=== PATIENT | female | born 1995 | race Caucasian/White ===

== ENCOUNTER 2016-06-13 15:48 | Emergency (ER) | payer BC ==
[2016-06-13] MEDS ORDERED: DEXAMETHASONE 10 MG/ML VIAL IVP ONE (16:03)
[2016-06-13] MEDS ORDERED: METOCLOPRAMIDE 10 MG/2 ML VIAL IVP ONE (16:03)
[2016-06-13] MEDS ORDERED: HYDROmorphONE/DILAUDID 1 MG/ML SYR IVP ONE ×2 (16:03→16:49)
--- NOTE | 2016-06-13 16:05 | EDPHY ---
H & P Stated Complaint: SÁNCHEZ x3 days (has hx);Had IV/meds @ [facility]; Sent here for further eval - Personal History LMP (Females 10-55): Now Current Tetanus Diphtheria and Acellular Pertussis (TDAP): Yes - Medical/Surgical History Hx Asthma: No Hx Chronic Respiratory Disease: No Hx Diabetes: No Hx Cardiac Disease: No Hx Renal Disease: No Hx Cirrhosis: No Hx Alcoholism: No Hx HIV/AIDS: No Hx Splenectomy or Spleen Trauma: No Other PMH: PMH- KIDNEY INFXNS, DEPRESSION/MIGRAINES - Social History Smoking Status: Never smoked Time Seen by Provider: 06/13/16 15:56 HPI/ROS: CHIEF COMPLAINT: "Migraine headache" x3 days HISTORY OF PRESENT ILLNESS: 21-year-old female history of chronic migraine headache with limited imaging of brain complaining of 3 days of a frontal and right-sided headache which feels different than her usual headache. She woke with a headache. Not thunderclap. Not associated with nuchal rigidity. Not associated with photophobia. No nausea or vomiting. No fever no chills. No flu- like symptoms.No recent trauma She went to [employer] today was given IV Zofran, IV Toradol with no resolution symptoms and came to the ER with her IV saline lock still in place. PRIMARY CARE PROVIDER:Bryan REVIEW OF SYSTEMS: A ten point review of systems was performed and is negative with the exception of the items mentioned in the HPI PAST MEDICAL & SURGICAL HISTORY: chronic migraine headache. Oral contraceptive use. SOCIAL HISTORY: nonsmoker PHYSICAL EXAM (Prior to examination, patient consented to physical exam, hands were washed and my usual and customary physical exam procedures followed) 1) GENERAL: Well-developed, well-nourished, alert and oriented. Appears comfortable . 2) HEAD: Normocephalic, atraumatic 3) HEENT: Pupils equal, round, reactive to light bilaterally. Sclera anicteric. Nasopharynx, oropharynx, clear, no lesions. No photophobia Ears bilaterally with normal tympanic membranes. 4) NECK: Full range of motion, no meningeal signs. 5) LUNGS: Clear auscultation bilaterally, no wheezes, no rhonchi, no retractions. 6) HEART: Regular rate and rhythm, no murmur, no heave, no gallop. 7) ABDOMEN: No guarding, no rebound, no focal tenderness, 8) MUSCULOSKELETAL: No peripheral edema or discoloration. 9) BACK: No CVA tenderness. 10) SKIN: No rash, no petechiae. 11) Psychiatric: Patient is oriented X 3, there is no agitation. 12) NEURO: Awake, alert, and oriented to person, place and time. Answers questions appropriately. There were no obvious focal neurologic abnormalities. No cerebellar dysfunction. Normal steady gait. Upper and lower extremities bilaterally with strength 5 / 5, reflexes 2+. DIFFERENTIAL DIAGNOSIS: In no particular order, including but not limited to subarachnoid hemorrhage, migraine headache, tension headache and infectious causes such as meningitis, pharyngitis and sinusitis. . (Kate Dominguez) Constitutional: Initial Vital Signs Temperature (C) 36.7 C 06/13/16 15:49 Heart Rate 84 06/13/16 15:49 Respiratory Rate 18 06/13/16 15:49 Blood Pressure 126/66 H 06/13/16 15:49 O2 Sat (%) 97 06/13/16 15:49 O2 Delivery Mode Room Air Allergies/Adverse Reactions: bronopol Allergy (Intermediate, Verified 06/13/16 15:52) skin swells Home Medications: Medication Instructions Recorded Tablet 11/28/15 Hydrocodone/APAP 5/325 [[place] 1 tab PO Q6 PRN #7 tab 06/13/16 5/325 (RX)] Ondansetron Odt [Zofran Odt] 4 mg PO Q4PRN PRN #7 tab 06/13/16 buPROPion [Wellbutrin 75mg (*)] 75 mg PO 06/13/16 Medical Decision Making - Diagnostics Imaging Results: Imaging Impressions Head CT 06/13/16 16:14 Impression: Normal. CT Angiogram of the Brain Clinical Indications: Sudden onset headache. Evaluate for venous sinus thrombosis. . Technique: CT angiogram of the brain was performed with the uneventful intravenous administration of 85 mL Isovue-370 contrast. Multiplanar reconstructions including 3D reconstructions performed and evaluated on Tailored workstation in order to better evaluate the [place] vessels. Images were manipulated by the radiologist at the computer workstation. Dose reduction techniques were utilized. Findings: Major vessels of the [place] are adequately displayed, demonstrating no evidence of aneurysm, vascular malformation, flow-limiting stenosis, or occlusion. Bilateral cavernous internal carotid arteries and vertebrobasilar system demonstrates no evidence of flow-limiting stenosis, aneurysm, occlusion or dissection. Superior sagittal sinus, transverse sinuses, and major veins demonstrate no evidence of intraluminal thrombi. Impression: Negative CT angiogram of the brain. Results called to Dr. Amado Kam. Head CTA 06/13/16 16:14 Impression: Normal. CT Angiogram of the Brain Clinical Indications: Sudden onset headache. Evaluate for venous sinus thrombosis. . Technique: CT angiogram of the brain was performed with the uneventful intravenous administration of 85 mL Isovue-370 contrast. Multiplanar reconstructions including 3D reconstructions performed and evaluated on Tailored workstation in order to better evaluate the [place] vessels. Images were manipulated by the radiologist at the computer workstation. Dose reduction techniques were utilized. Findings: Major vessels of the [place] are adequately displayed, demonstrating no evidence of aneurysm, vascular malformation, flow-limiting stenosis, or occlusion. Bilateral cavernous internal carotid arteries and vertebrobasilar system demonstrates no evidence of flow-limiting stenosis, aneurysm, occlusion or dissection. Superior sagittal sinus, transverse sinuses, and major veins demonstrate no evidence of intraluminal thrombi. Impression: Negative CT angiogram of the brain. Results called to Dr. Amado Kam. CT head without and with IV contrast reviewed by me and discussed with Dr. Kang is negative. No evidence for intracranial bleeding, aneurysm, sagittal venous thrombosis (Amado Kam) ED Course/Re-evaluation: 4:00 p.m.: This patient has a longstanding history of chronic headaches with limited imaging and notes a headache which feels very different than her usual chronic headaches namely her headaches usually do not last 3 days, she does not have the associated photophobia audiophobia, nausea which typically accompanies her headaches. I recommended CT imaging with and without contrast to evaluate for possible cerebral venous thrombosis. Indications risks benefits discussed with patient and she consents. I believe her to have decision-making capacity 4:49 p.m.: Re-evaluation. She notes continued pain. 5:00 p.m.: Care will be transferred to Dr. Amado Kam at this time. CT imaging pending. (Kate Dominguez) Re-evaluation at 6:30 p.m.--patient is stable, alert, conversational. Neurologically intact. She and I discussed laboratory evaluation, imaging study results, treatment plan including criteria for return importance of follow -up and further evaluation. She expresses understanding and agreement (Amado Kam) - Data Points Laboratory Results: Laboratory Results 06/13/16 16:29 06/13/16 16:29 06/13/16 06/13/16 06/13/16 16:29 16:29 16:29 WBC 5.61 10^3/uL 10^3/uL (3.80-9.50) RBC 4.53 10^6/uL 10^6/uL (4.18-5.33) Hgb 12.7 g/dL g/dL (12.6-16.3) Hct 38.4 % % (38.0-47.0) MCV 84.8 fL fL (81.5-99.8) MCH 28.0 pg pg (27.9-34.1) MCHC 33.1 g/dL g/dL (32.4-36.7) RDW 12.9 % % (11.5-15.2) Plt Count 215 10^3/uL 10^3/uL (150-400) MPV 9.7 fL fL (8.7-11.7) Neut % (Auto) 52.7 % % (39.3-74.2) Lymph % (Auto) 39.2 % % (15.0-45.0) [place] % (Auto) 6.6 % % (4.5-13.0) Eos % (Auto) 1.1 % % (0.6-7.6) Baso % (Auto) 0.2 % L % (0.3-1.7) Nucleat RBC Rel Count 0.0 % % (0.0-0.2) Absolute Neuts (auto) 2.96 10^3/uL 10^3/uL (1.70-6.50) Absolute Lymphs (auto) 2.20 10^3/uL 10^3/uL (1.00-3.00) Absolute Monos (auto) 0.37 10^3/uL 10^3/uL (0.30-0.80) Absolute Eos (auto) 0.06 10^3/uL 10^3/uL (0.03-0.40) Absolute Basos (auto) 0.01 10^3/uL L 10^3/uL (0.02-0.10) Absolute Nucleated RBC 0.00 10^3/uL 10^3/uL (0-0.01) Immature Gran % 0.2 % % (0.0-1.1) Immature Gran # 0.01 10^3/uL 10^3/uL (0.00-0.10) Sodium 139 mEq/L mEq/L (134-144) Potassium 3.8 mEq/L mEq/L (3.5-5.2) Chloride 109 mEq/L mEq/L (97-110) Carbon Dioxide 23 mEq/l mEq/l (22-31) Anion Gap 7 mEq/L L mEq/L (8-16) BUN 9 mg/dL mg/dL (7-23) Creatinine 0.7 mg/dL mg/dL (0.6-1.0) Estimated GFR > 60 Glucose 78 mg/dL mg/dL (70-100) Calcium 8.4 mg/dL L mg/dL (8.5-10.4) Beta HCG, Qual NEGATIVE Medications Given: Discontinued Medications Dexamethasone (Decadron Injection) 10 mg IVP EDNOW ONE Stop: 06/13/16 16:04 Last Admin: 06/13/16 16:15 Dose: 10 mg Diphenhydramine HCl (Benadryl Injection) 25 mg IVP EDNOW ONE Stop: 06/13/16 16:04 Last Admin: 06/13/16 16:18 Dose: 25 mg Hydromorphone HCl (Dilaudid) 1 mg IVP EDNOW ONE Stop: 06/13/16 16:04 Last Admin: 06/13/16 16:15 Dose: 1 mg Hydromorphone HCl (Dilaudid) 1 mg IVP EDNOW ONE Stop: 06/13/16 16:50 Last Admin: 06/13/16 17:20 Dose: Not Given Metoclopramide HCl (Reglan Injection) 10 mg IVP EDNOW ONE Stop: 06/13/16 16:04 Last Admin: 06/13/16 16:36 Dose: 10 mg Departure - Departure Disposition: Home, Routine, Self-Care Clinical Impression: Headache Qualifiers: Headache type: other headache syndrome Qualified Code(s): G44.89 - Other headache syndrome Condition: Good Instructions: Migraine Headache (ED) Additional Instructions: RETURN TO THE ED IMMEDIATELY IF YOUR HEADACHE WORSENS, IF YOU DEVELOP A FEVER, NECK PAIN OR NECK STIFFNESS, OR IF YOU BECOME CONFUSED OR ABNORMALLY DROWSY. Referrals: RONY MADRIGAL [Other] - As per Instructions Jesse Sandra DO [Medical Doctor] - 2-3 days, call for appt. (Dr Sandra is a neurologist) Prescriptions: Hydrocodone/APAP 5/325 [[place] 5/325 (RX)] 1 tab PO Q6 PRN #7 tab PRN Reason: Pain, Severe Ondansetron Odt [Zofran Odt] 4 mg PO Q4PRN PRN #7 tab PRN Reason: Nausea
[2016-06-13 16:35] LABS: % IMMATURE GRANULYOCYTES 0.2 % (0.0-1.1); ABSOLUTE IMMATURE GRANULOCYTES 0.01 10^3/uL (0.00-0.10); ADD DIFF? NO; ADD MORPH? NO; ADD SCAN? NO; ATYPICAL LYMPHOCYTE FLAG 20 (0-99); FRAGMENT RBC FLAG 0 (0-99); HEMATOCRIT 38.4 % (38.0-47.0); HEMOGLOBIN 12.7 g/dL (12.6-16.3); LEFT SHIFT FLG 0 (0-99); LIPEMIA HEMOLYSIS FLAG 80 (0-99); MEAN CELL HEMOGLOBIN CONCENTR. 33.1 g/dL (32.4-36.7); MEAN CELL VOLUME 84.8 fL (81.5-99.8); MEAN PLATELET VOLUME 9.7 fL (8.7-11.7); PLATELET CLUMPS FLAG 0 (0-99); PLATELET COUNT 215 10^3/uL (150-400); RED BLOOD CELL COUNT 4.53 10^6/uL (4.18-5.33); RED CELL DISTRIBUTION WIDTH 12.9 % (11.5-15.2)
[2016-06-13 16:58] LABS: ANION GAP 7 mEq/L (8-16); CALCIUM 8.4 mg/dL (8.5-10.4); CARBON DIOXIDE 23 mEq/l (22-31); CHLORIDE 109 mEq/L (97-110); CREATININE 0.7 mg/dL (0.6-1.0); GLOMERULAR FILTRATION RATE > 60; GLUCOSE 78 mg/dL (70-100); POTASSIUM 3.8 mEq/L (3.5-5.2); SODIUM 139 mEq/L (134-144)
[2016-06-13] MEDS ORDERED: IOPAMIDOL (ISOVUE 370) 100 ML BTL IV ONE (17:05)
[2016-06-13 17:31] VITALS: PULSE 75
[2016-06-13 18:58] VITALS: BP 110/75; RESP 16; TEMP 99.3; O2SAT 97
== END 2016-06-13 18:57 | disposition home or self-care (01) ==
DX: G44.89 Other headache syndrome (principal)
CPT/HCPCS: 96374; J1170; J1200; J2765; Q9967

== ENCOUNTER 2016-06-14 16:05 | Emergency (ER) | payer BC ==
[2016-06-14] MEDS ORDERED: NS 1,000 ML IV ONE (16:30)
[2016-06-14] MEDS ORDERED: KETOROLAC 30 MG/1 ML SDV IVP ONE (16:30)
[2016-06-14] MEDS ORDERED: METOCLOPRAMIDE 10 MG/2 ML VIAL IVP ONE (16:30)
[2016-06-14] MEDS ORDERED: DEXAMETHASONE 10 MG/ML VIAL IVP ONE (16:31)
--- NOTE | 2016-06-14 16:32 | EDPHY ---
H & P Time Seen by Provider: 06/14/16 16:20 HPI/ROS: CHIEF COMPLAINT: Headache HISTORY OF PRESENT ILLNESS: This 21-year-old woman has had migraine headaches diagnosed and she was 10 years old. She presents to me stating that she has had a migraine headache since Friday of this week which is identical in quality to previous ones but just worse in severity and duration. She describes it as right-sided associated with nausea and some blurry vision and worse with light exposure. She was seen in our emergency department yesterday and was treated with Dilaudid and dexamethasone and Reglan which improved her headache temporarily but today it is worse. She also of note had CT and CT angiography and Venography which was negative yesterday. Today she presents with recurrent headache. Symptoms are moderate to severe. She specifically denies fever or double vision, recent injury or trauma, neck pain or vertigo. REVIEW OF SYSTEMS: Eye: no change in vision ENT: no sore throat Cardiac: no chest pain or syncope Pulmonary: no cough or SOB Abdomen: no vomiting, diarrhea, abdominal pain Musculoskeletal: no back pain Skin: no rash Neuro: HPI Constitutional: no fever : no urinary symptoms A comprehensive 10 point review of systems is otherwise negative aside from elements mentioned in the history of present illness. PAST MEDICAL HISTORY: Migraine headaches as noted above. Last menstrual period was Friday and denies , also has history of kidney infections and depression. Social history: No smoking or drugs General Appearance: Alert and conversant, cooperative. Eyes: No scleral icterus. Extraocular motion intact, no proptosis, pupils equal and reactive. ENT, Mouth: Normal mucous membranes. No trismus, normal tympanic membranes, normal pharynx. No facial swelling or redness. Respiratory: Normal respiratory effort, breath sounds equal, lungs are clear to auscultation. Cardiovascular: Regular rate and rhythm. Gastrointestinal: Abdomen is soft and non tender. Neurological: Alert and oriented x3. Normally conversant. Face symmetric, normal movement and sensation in all extremities. Normal [id number] bilaterally and no pronator drift. Skin: Warm and dry, no rashes. Musculoskeletal: Full range of motion of the neck without meningeal signs. Psychiatric: Not agitated. Emergency Department course/MDM: Patient presents with exacerbation of her migraine and negative CT imaging yesterday. I think that carotid or vertebral dissection or CAPSULE FILLING MACHINE OPERATOR infection is unlikely. I think that acute subarachnoid or intracranial hypertension is also unlikely. She has neurology follow-up this coming Friday. Plan to treat with IV Toradol 30 mg, Benadryl 50 mg, Reglan 10 mg, dexamethasone 10 mg. 1729: Improved, sleeping. 1824: Still has headache, imitrex discussed and consented. 1909: Feels a little bit "weird," headache improving. 1951: Feels well enough to go home, headache better, we discussed trying oral Imitrex at home as a rescue medication, consented. Smoking Status: Never smoked Constitutional: Initial Vital Signs Temperature (C) 36.7 C 06/14/16 16:08 Heart Rate 76 06/14/16 16:08 Respiratory Rate 18 06/14/16 16:08 Blood Pressure 126/80 H 06/14/16 16:08 O2 Sat (%) 98 06/14/16 16:08 O2 Delivery Mode Room Air Allergies/Adverse Reactions: bronopol Allergy (Intermediate, Verified 06/13/16 15:52) skin swells Home Medications: Medication Instructions Recorded Tablet 11/28/15 Hydrocodone/APAP 5/325 [[place] 1 tab PO Q6 PRN #7 tab 06/13/16 5/325 (RX)] Ondansetron Odt [Zofran Odt] 4 mg PO Q4PRN PRN #7 tab 06/13/16 buPROPion [Wellbutrin 75mg (*)] 75 mg PO 06/13/16 SUMAtriptan [Imitrex 50 MG (*)] 50 mg PO Q2H #6 tab 06/14/16 Medical Decision Making Differential Diagnosis: Differential diagnosis considered for headache including but not limited to subarachnoid hemorrhage, migraine headache, tension headache and infectious causes such as meningitis, pharyngitis and sinusitis. - Data Points Medications Given: Discontinued Medications Dexamethasone (Decadron Injection) 10 mg IVP EDNOW ONE Stop: 06/14/16 16:32 Last Admin: 06/14/16 16:48 Dose: 10 mg Diphenhydramine HCl (Benadryl Injection) 50 mg IVP EDNOW ONE Stop: 06/14/16 16:31 Last Admin: 06/14/16 16:48 Dose: 50 mg Sodium Chloride (Ns) 1,000 mls @ 0 mls/hr IV ONCE ONE PRN Reason: Wide Open Stop: 06/14/16 16:31 Last Admin: 06/14/16 16:36 Dose: 1,000 mls Ketorolac Tromethamine (Toradol) 30 mg IVP EDNOW ONE Stop: 06/14/16 16:31 Last Admin: 06/14/16 16:48 Dose: 30 mg Metoclopramide HCl (Reglan Injection) 10 mg IVP EDNOW ONE Stop: 06/14/16 16:31 Last Admin: 06/14/16 16:48 Dose: 10 mg Sumatriptan Succinate (Imitrex Sc Injection) 6 mg SC EDNOW ONE Stop: 06/14/16 18:23 Last Admin: 06/14/16 18:29 Dose: 6 mg Departure - Departure Disposition: Home, Routine, Self-Care Clinical Impression: Headache Qualifiers: Headache type: unspecified Headache chronicity pattern: acute headache Intractability: not intractable Qualified Code(s): R51 - Headache Condition: Good Instructions: Acute Headache (ED) Additional Instructions: Please follow-up with your neurologist on Friday next week as scheduled. Referrals: RONY MADRIGAL [Other] - As per Instructions Jesse Sandra DO [Medical Doctor] - As per Instructions (Dr. Sandra is the [facility] neurologist) Prescriptions: SUMAtriptan [Imitrex 50 MG (*)] 50 mg PO Q2H #6 tab
[2016-06-14] MEDS ORDERED: SUMAtriptan 6 MG/0.5 ML VIAL SC ONE ×2 (18:22→18:23)
[2016-06-14 18:58] VITALS: BP 121/86
[2016-06-14 20:08] VITALS: PULSE 58; RESP 17; TEMP 97.9; O2SAT 97
== END 2016-06-14 20:08 | disposition home or self-care (01) ==
DX: R51 Headache (principal)
CPT/HCPCS: 96374; J1200; J1885; J2765; J3030

== ENCOUNTER 2016-11-11 14:48 | Emergency (ER) | payer BC ==
[2016-11-11 15:26] LABS: COLOR COLORLESS; LEUKOCYTE ESTERASE,URINE NEGATIVE (NEGATIVE); NITRITE,URINE NEGATIVE (NEGATIVE)
[2016-11-11] MEDS ORDERED: ONDANSETRON 4 MG/2 ML VIAL IVP ONE (16:25)
[2016-11-11] MEDS ORDERED: NS 1,000 ML IV ONE (16:25)
[2016-11-11 16:28] LABS: MUCUS TRACE /lpf (NONE-1+)
[2016-11-11 16:30] LABS: RBC,URINE NONE SEEN /hpf (0-3)
[2016-11-11 16:36] LABS: % IMMATURE GRANULYOCYTES 0.4 % (0.0-1.1); ABSOLUTE IMMATURE GRANULOCYTES 0.04 10^3/uL (0.00-0.10); ADD DIFF? NO; ADD MORPH? NO; ADD SCAN? NO; ATYPICAL LYMPHOCYTE FLAG 20 (0-99); FRAGMENT RBC FLAG 0 (0-99); HEMATOCRIT 43.6 % (38.0-47.0); HEMOGLOBIN 14.7 g/dL (12.6-16.3); LEFT SHIFT FLG 0 (0-99); LIPEMIA HEMOLYSIS FLAG 80 (0-99); MEAN CELL HEMOGLOBIN 28.9 pg (27.9-34.1); MEAN CELL HEMOGLOBIN CONCENTR. 33.7 g/dL (32.4-36.7); MEAN CELL VOLUME 85.8 fL (81.5-99.8); MEAN PLATELET VOLUME 9.5 fL (8.7-11.7); PLATELET CLUMPS FLAG 0 (0-99); PLATELET COUNT 304 10^3/uL (150-400); RED BLOOD CELL COUNT 5.08 10^6/uL (4.18-5.33); RED CELL DISTRIBUTION WIDTH 12.3 % (11.5-15.2)
--- NOTE | 2016-11-11 16:37 | EDPHY ---
H & P Stated Complaint: "I think I have a kidney infection" - Personal History LMP (Females 10-55): 8-14 Days Ago Current Tetanus Diphtheria and Acellular Pertussis (TDAP): Yes - Medical/Surgical History Hx Asthma: No Hx Chronic Respiratory Disease: No Hx Diabetes: No Hx Cardiac Disease: No Hx Renal Disease: No Hx Cirrhosis: No Hx Alcoholism: No Hx HIV/AIDS: No Hx Splenectomy or Spleen Trauma: No Other PMH: PMH- KIDNEY INFXNS, DEPRESSION/MIGRAINES - Social History Smoking Status: Never smoked Time Seen by Provider: 11/11/16 16:18 HPI/ROS: CHIEF COMPLAINT: "I think I have a kidney infection "x2 days HISTORY OF PRESENT ILLNESS: 21-year-old immunocompetent female had urinary tract infection 10 days ago, treated with antibiotics via urgent care that time , now complaining of right flank pain for the past 2 days. Positive nausea. Positive intermittent right upper quadrant pain. No vomiting. No headache. No fever or chills. No incontinence. No retention. No radiculopathy. No midline back pain. No trauma. No respiratory complaints. No dyspnea. No cough. No recent URI symptoms. PRIMARY CARE PROVIDER: Bryan REVIEW OF SYSTEMS: A ten point review of systems was performed and is negative with the exception of the items mentioned in the HPI PAST MEDICAL & SURGICAL HISTORY: Recent diagnosis of UTI at an urgent care. No history of abdominal surgeries. SOCIAL HISTORY: Nonsmoker, student PHYSICAL EXAM (Prior to examination, patient consented to physical exam, hands were washed and my usual and customary physical exam procedures followed) 1) GENERAL: Well-developed, well-nourished, alert and oriented. Appears to be in no acute distress. 2) HEAD: Normocephalic, atraumatic 3) HEENT: Pupils equal, round, reactive to light bilaterally. Sclera anicteric. Nasopharynx, oropharynx, clear, no lesions. Moist mucous membranes Ears bilaterally with normal tympanic membranes. 4) NECK: Full range of motion, no meningeal signs. 5) LUNGS: Clear auscultation bilaterally, no wheezes, no rhonchi, no retractions. 6) HEART: Regular rate and rhythm, no murmur, no heave, no gallop. 7) ABDOMEN: No guarding, no rebound, no focal tenderness, negative McBurney's, negative Mcnamara's, negative Rovsing's, negative peritoneal sign, I am unable to elicit abdominal pain on exam 8) MUSCULOSKELETAL: Moving all extremities, no focal areas of tenderness, no obvious trauma. No peripheral edema or discoloration. 9) BACK: Positive right CVA tenderness, no midline vertebral tenderness, no fluctuance, no step-off, no obvious trauma, no visual or palpable abnormality.] 10) SKIN: No rash, no petechiae. 11) Psychiatric: Patient is oriented X 3, there is no agitation. DIFFERENTIAL DIAGNOSIS: in no particular order including but limited to pyelonephritis, acute cholecystitis, acute pancreatitis, perinephric abscess, muscle strain (Kate Dominguez) Constitutional: Initial Vital Signs Temperature (C) 36.8 C 11/11/16 15:00 Heart Rate 73 11/11/16 15:00 Respiratory Rate 18 11/11/16 15:00 Blood Pressure 122/87 H 11/11/16 15:00 O2 Sat (%) 97 11/11/16 15:00 O2 Delivery Mode Room Air Allergies/Adverse Reactions: bronopol Allergy (Intermediate, Verified 11/11/16 15:05) skin swells Home Medications: Medication Instructions Recorded Tablet 11/28/15 SUMAtriptan [Imitrex 50 MG (*)] 50 mg PO Q2H #6 tab 06/14/16 DULoxetine [Cymbalta 30 MG (*)] 30 mg PO 11/11/16 Ibuprofen [Motrin (*)] 800 mg PO Q6 #10 tab 11/11/16 Medical Decision Making ED Course/Re-evaluation: 5:01 p.m.: Evaluated with septations. Appears well, she is afebrile, normal vital signs. I reviewed her laboratory studies including normal urinalysis, normal chemistry. Doubt pyelonephritis, perinephric abscess, doubt acute cholecystitis, doubt acute pancreatitis, doubt nephrolithiasis, doubt PE, doubt pulmonary infectious etiology. I discussed possible acute muscle strain. I do not think that antibiotics are currently indicated, not think that imaging or diagnostic studies are indicated. I recommended pain control with NSAIDs, usual and customary NSAID precautions and instructions provided. Recommend that if she develops new or worsening symptoms to return emergency department immediately otherwise to follow up with [facility]. Patient is agreeable with this. All questions and concerns addressed by myself (Kate Dominguez) I did not see this patient while she was in the emergency department. However her care was discussed with the PA while the patient was in the department. I agree with treatment plan and management (Amado Kam) - Data Points Laboratory Results: Laboratory Results 11/11/16 16:30 11/11/16 16:30 11/11/16 11/11/16 11/11/16 16:30 16:30 15:10 WBC 9.29 10^3/uL 10^3/uL (3.80-9.50) RBC 5.08 10^6/uL 10^6/uL (4.18-5.33) Hgb 14.7 g/dL g/dL (12.6-16.3) Hct 43.6 % % (38.0-47.0) MCV 85.8 fL fL (81.5-99.8) MCH 28.9 pg pg (27.9-34.1) MCHC 33.7 g/dL g/dL (32.4-36.7) RDW 12.3 % % (11.5-15.2) Plt Count 304 10^3/uL 10^3/uL (150-400) MPV 9.5 fL fL (8.7-11.7) Neut % (Auto) 68.3 % % (39.3-74.2) Lymph % (Auto) 28.3 % % (15.0-45.0) [place] % (Auto) 2.5 % L % (4.5-13.0) Eos % (Auto) 0.2 % L % (0.6-7.6) Baso % (Auto) 0.3 % % (0.3-1.7) Nucleat RBC Rel Count 0.0 % % (0.0-0.2) Absolute Neuts (auto) 6.34 10^3/uL 10^3/uL (1.70-6.50) Absolute Lymphs (auto) 2.63 10^3/uL 10^3/uL (1.00-3.00) Absolute Monos (auto) 0.23 10^3/uL L 10^3/uL (0.30-0.80) Absolute Eos (auto) 0.02 10^3/uL L 10^3/uL (0.03-0.40) Absolute Basos (auto) 0.03 10^3/uL 10^3/uL (0.02-0.10) Absolute Nucleated RBC 0.00 10^3/uL 10^3/uL (0-0.01) Immature Gran % 0.4 % % (0.0-1.1) Immature Gran # 0.04 10^3/uL 10^3/uL (0.00-0.10) Sodium 136 mEq/L mEq/L (134-144) Potassium 4.0 mEq/L mEq/L (3.5-5.2) Chloride 99 mEq/L mEq/L (97-110) Carbon Dioxide 23 mEq/l mEq/l (22-31) Anion Gap 14 mEq/L mEq/L (8-16) BUN 10 mg/dL mg/dL (7-23) Creatinine 0.8 mg/dL mg/dL (0.6-1.0) Estimated GFR > 60 Glucose 85 mg/dL mg/dL (70-100) Calcium 10.3 mg/dL mg/dL (8.5-10.4) Total Bilirubin 0.7 mg/dL mg/dL (0.1-1.4) Conjugated Bilirubin 0.2 mg/dL mg/dL (0.0-0.5) Unconjugated Bilirubin 0.5 mg/dL mg/dL (0.0-1.1) AST 28 IU/L IU/L (14-46) ALT 28 IU/L IU/L (9-52) Alkaline Phosphatase 75 IU/L IU/L (38-126) Total Protein 8.3 g/dL H g/dL (6.3-8.2) Albumin 4.5 g/dL g/dL (3.5-5.0) Lipase 72 IU/L IU/L (23-300) Urine Color Urine Appearance Urine pH Ur Specific [place] Urine Protein Urine Ketones Urine Blood Urine Nitrate Urine Bilirubin Urine Urobilinogen Ur Leukocyte Esterase Urine RBC NONE SEEN /hpf /hpf (0-3) Urine WBC 1-3 /hpf /hpf (0-3) Ur Epithelial Cells NONE SEEN /lpf /lpf (NONE-1+) Urine Mucus TRACE /lpf /lpf (NONE-1+) Urine Glucose Urine Test 11/11/16 11/11/16 15:10 15:10 WBC RBC Hgb Hct MCV MCH MCHC RDW Plt Count MPV Neut % (Auto) Lymph % (Auto) [place] % (Auto) Eos % (Auto) Baso % (Auto) Nucleat RBC Rel Count Absolute Neuts (auto) Absolute Lymphs (auto) Absolute Monos (auto) Absolute Eos (auto) Absolute Basos (auto) Absolute Nucleated RBC Immature Gran % Immature Gran # Sodium Potassium Chloride Carbon Dioxide Anion Gap BUN Creatinine Estimated GFR Glucose Calcium Total Bilirubin Conjugated Bilirubin Unconjugated Bilirubin AST ALT Alkaline Phosphatase Total Protein Albumin Lipase Urine Color COLORLESS Urine Appearance CLEAR Urine pH 7.0 (5.0-7.5) Ur Specific [place] 1.001 L (1.002-1.030) Urine Protein NEGATIVE (NEGATIVE) Urine Ketones NEGATIVE (NEGATIVE) Urine Blood NEGATIVE (NEGATIVE) Urine Nitrate NEGATIVE (NEGATIVE) Urine Bilirubin NEGATIVE (NEGATIVE) Urine Urobilinogen NEGATIVE EU EU (0.2-1.0) Ur Leukocyte Esterase NEGATIVE (NEGATIVE) Urine RBC Urine WBC Ur Epithelial Cells Urine Mucus Urine Glucose NEGATIVE (NEGATIVE) Urine Test NEGATIVE Medications Given: Discontinued Medications Sodium Chloride (Ns) 1,000 mls @ 0 mls/hr IV ONCE ONE PRN Reason: Wide Open Stop: 11/11/16 16:26 Last Admin: 11/11/16 16:36 Dose: 1,000 mls Ondansetron HCl (Zofran) 4 mg IVP EDNOW ONE Stop: 11/11/16 16:26 Last Admin: 11/11/16 16:36 Dose: 4 mg Departure - Departure Disposition: Home, Routine, Self-Care Clinical Impression: Back pain Qualifiers: Back pain location: low back pain Chronicity: acute Back pain laterality: right Sciatica presence: without sciatica Qualified Code(s): M54.5 - Low back pain Condition: Good Instructions: Low Back Strain (ED) Additional Instructions: Seek medical attention if you develop new or worsening pain, if you develop bladder or bowel dysfunction, if you develop fevers or chills, flu-like symptoms , urinary abnormality, numbness around your perineum, foot drop, or any other symptoms that concern you. Referrals: BRYAN Leigh. [Clinic] - 2-3 days, call for appt. Prescriptions: Ibuprofen [Motrin (*)] 800 mg PO Q6 #10 tab
[2016-11-11 16:52] LABS: ALANINE AMINOTRANSFERASE 28 IU/L (9-52); ALBUMIN 4.5 g/dL (3.5-5.0); ALKALINE PHOSPHATASE 75 IU/L (38-126); ANION GAP 14 mEq/L (8-16); ASPARTATE AMINOTRANSFERASE 28 IU/L (14-46); BILIRUBIN,TOTAL 0.7 mg/dL (0.1-1.4); BILIRUBIN-CONJUGATED 0.2 mg/dL (0.0-0.5); BILIRUBIN-UNCONJUGATED 0.5 mg/dL (0.0-1.1); CALCIUM 10.3 mg/dL (8.5-10.4); CARBON DIOXIDE 23 mEq/l (22-31); CHLORIDE 99 mEq/L (97-110); CREATININE 0.8 mg/dL (0.6-1.0); GLOMERULAR FILTRATION RATE > 60; GLUCOSE 85 mg/dL (70-100); SODIUM 136 mEq/L (134-144); TOTAL PROTEIN 8.3 g/dL (6.3-8.2)
[2016-11-11 17:24] VITALS: BP 124/88; PULSE 70; RESP 16; TEMP 98.4; O2SAT 99
== END 2016-11-11 17:22 | disposition home or self-care (01) ==
DX: M54.5 Low back pain (principal)
CPT/HCPCS: 96374; J2405

== ENCOUNTER → 2016-12-18 | Outpatient (CLI) | payer BC | LOC: BMCIMAGING 12:11 | PROVIDERS: ATTEND Family Medicine | DX: R05 Cough (principal) ==

== ENCOUNTER → 2017-03-04 | Outpatient (CLI) | payer BC | LOC: BMCIMAGING 11:19 | PROVIDERS: ATTEND Family Medicine | DX: M25.511 Pain in right shoulder (principal) ==

== ENCOUNTER 2017-06-04 20:58 | Emergency (ER) | payer BC ==
--- NOTE | 2017-06-04 22:17 | EDPHY ---
H & P Stated Complaint: L4-5 OLD INJURY, FLARING TONIGHT Time Seen by Provider: 06/04/17 22:15 HPI/ROS: HPI: This is a 22-year-old female who presents with Chief Complaint: L4-5 OLD INJURY, FLARING TONIGHT Location: Bilateral Lower back Quality: Pain Duration: 1-2 hours prior to arrival Signs and Symptoms: No bleeding, no radiation, no numbness, no weakness, no tingling, no incontinence, no decreased range of motion, no swelling, + pain, no fever, no urinary symptoms Timing: Acute Severity: 09/26 Context: Patient presents with complaints of sudden onset of lower back near her L4-L5 area; bilateral on either side of her spine; constant, severe, nonradiating in nature. Patient reports that she was sitting down when the pain started to occur. Denies any recent increased activity/contact sports/ injury. Patient reports that she had an elective approximately 8 weeks ago and she has not had return of her menses since. Denies any burning with urination/fever/abdominal pain/nausea/vomiting. She reports that she is ambulating without difficulty. She tried no [id number] medications prior to arrival. 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 CONSTITUTIONAL: Polite and cooperative, well-appearing young adult female, awake and alert, no obvious distress HEENT: Atraumatic and normocephalic. NECK: supple, no midline tenderness, flexion 45 degrees, extension 45 degrees, right and left lateral flexion 45 degrees. No meningismus. Cardiovascular: Normal S1/S2, regular rate, regular rhythm, without murmur rub or gallop. PULMONARY/CHEST: Symmetrical and nontender. no crepitus. Clear to auscultation bilaterally. Good air movement. No accessory muscle usage. ABDOMEN: Soft, nondistended, nontender, no ecchymosis. PELVIC: no pain with rocking; bilateral hips flexion 125 degrees, extension 30 degrees, with no pain internal rotation and no pain external rotation. BACK: No midline tenderness, + moderate reproducible lower lumbar tenderness, no paraspinous spasm, deep tendon reflexes 2/2, no pain with straight leg raise , No foot drop. Achilles reflexes are equal bilaterally. Able to walk on heels and toes without difficulty. EXTREMITIES: 2/2 pulses, strength 5/5, DIP/PIP/MCP flexion/extension intact with good light touch sensation. no deformities, no clubbing, no cyanosis or edema. NEUROLOGICAL: no focal neuro deficits. GCS 15. Light touch sensation intact. SKIN: Warm and dry, no erythema. no rash. Good capillary refill. 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 - Social History Smoking Status: Never smoked Constitutional: Initial Vital Signs Temperature (C) 36.7 C 06/04/17 21:04 Heart Rate 80 06/04/17 21:04 Respiratory Rate 22 H 06/04/17 21:04 Blood Pressure 105/87 H 06/04/17 21:04 O2 Sat (%) 97 06/04/17 21:04 O2 Delivery Mode Room Air Allergies/Adverse Reactions: bronopol Allergy (Intermediate, Verified 06/04/17 21:03) skin swells Home Medications: Medication Instructions Recorded DULoxetine [Cymbalta 30 MG (*)] 30 mg PO 11/11/16 Adderall Xr 15 mg Capsule 06/04/17 Cyclobenzaprine [Flexeril 10 MG 10 mg PO Q8 PRN #12 tab 06/04/17 (*)] Medical Decision Making - Diagnostics Imaging Results: Imaging Impressions Lumbar Spine X-Ray 06/04/17 22:20 Impression: Normal. ED Course/Re-evaluation: Lumbosacral x-ray, oral medication, topical medications ordered No red flags to warrant emergent MRI. No signs of neurovascular compromise/tenting of skin/compartment syndrome/ extremities and joints examined above and below area of concern and are neurovascularly intact. 2225: Given PO Valium, p.o. Decadron, Lidoderm patch, [place] 2252: Lumbar sacral x-ray reviewed at bedside with patient; no significant degenerative changes/stenosis. + moderate stool burden noted Reassessed patient discharge. Reports adequate relief of pain. Ambulatory without deficits. This patient was seen under the supervision of my secondary supervising physician. I evaluated care for this patient independently. Differential Diagnosis: Back pain including but not limited to muscular pain, herniated disc, spine fracture, intra-abdominal causes and urinary tract infection. - Data Points Medications Given: Discontinued Medications Hydrocodone Bitart/Acetaminophen ([place] 5/325) 1 tab PO EDNOW ONE Stop: 06/04/17 22:22 Last Admin: 06/04/17 22:55 Dose: 1 tab Diazepam (Valium) 5 mg PO EDNOW ONE Stop: 06/04/17 22:21 Last Admin: 06/04/17 22:55 Dose: 5 mg Gabapentin (Neurontin) 600 mg PO EDNOW ONE Stop: 06/04/17 22:21 Last Admin: 06/04/17 22:56 Dose: 600 mg Miscellaneous Medication (Icy Hot Lidocaine/Menthol 4%/1% Patch) 1 patch TD EDNOW ONE Stop: 06/04/17 22:21 Last Admin: 06/04/17 22:55 Dose: 1 patch Departure - Departure Disposition: Home, Routine, Self-Care Clinical Impression: History of herniated intervertebral disc Strain of lumbar spine Qualifiers: Encounter type: initial encounter Qualified Code(s): S39.012A - Strain of muscle, fascia and tendon of lower back, initial encounter Condition: Good Instructions: Low Back Strain (ED), Lower Back Exercises (ED) Additional Instructions: Take Tylenol 650 mg every 4 hours and/or Ibuprofen 600 mg every 8 hours with food as needed for pain. Use Flexeril every 8 hours as needed for muscle spasm. Apply heating pad for 30 minutes at a time; 2-3 times per day for the next 1-2 days. Avoid lifting more than 10 lb or moderate physical activity, until pain resolved. Follow up with PCP/Neurosurgery in 7-10 days if symptoms persist at which time they will evaluate and recommend with you if conservative management versus MRI is indicated. Return to the ER immediately if you have new or worsening back pain, fevers/ chills, flu like symptoms, incontinence or inability to urinate or defecate, weakness, paralysis, or any other symptom that concerns you Referrals: PCP Not In,Dictionary [Medical Doctor] - As per Instructions Prescriptions: Cyclobenzaprine [Flexeril 10 MG (*)] 10 mg PO Q8 PRN #12 tab PRN Reason: Spasms
[2017-06-04] MEDS ORDERED: DIAZEPAM 5 MG TAB PO ONE (22:20)
[2017-06-04] MEDS ORDERED: LIDOCAINE 4%/MENTHOL 1% PATCH TD ONE (22:20)
[2017-06-04] MEDS ORDERED: GABAPENTIN 300 MG CAP PO ONE (22:20)
[2017-06-04] MEDS ORDERED: HYDROCODONE/APAP 5/325 TAB PO ONE (22:21)
[2017-06-04 23:35] VITALS: BP 108/72
[2017-06-05] MEDS ORDERED: PATCH REMOVAL 1 EA PATCH TD SCH (21:00)
== END 2017-06-04 23:35 | disposition home or self-care (01) ==
DX: S39.012A Strain of muscle, fascia and tendon of lower back, initial encounter (principal); Z87.39 Personal history of other diseases of the musculoskeletal system and connective tissue; X58.XXXA Exposure to other specified factors, initial encounter